=== PATIENT | male | born 1950 | race Caucasian/White ===

== ENCOUNTER 2025-02-08 15:18 | Emergency (ER) | payer OTHER ==
[~2025-02-08] VITALS: Ht 177.8 cm; Wt 99.9 kg
[2025-02-08 16:24] LABS: BASOPHILS 0.5 % (0.2-1.2); EOSINOPHILS 2.0 % (0.8-7.0); LYMPHOCYTES 34.9 % (21.8-53.1); MCH 31.5 PG (25.7-32.2); MCHC 36.9 g/dL (32.3-36.5); MCV 85.5 fL (79.0-92.2); MONOCYTES 8.3 % (5.3-12.2); NEUTROPHILS 54.1 % (34.0-67.9); RBC 4.54 M/uL (4.63-6.08)
[2025-02-08] MEDS ORDERED: SODIUM CHLORIDE 0.9% 1,000 ML IV PRN ×2 (16:30→17:15)
[2025-02-08] MEDS ORDERED: METOPROLOL TAR100 MG PO (16:40)
[2025-02-08] MEDS ORDERED: ONE DAILY WITH1 EACH PO (16:40)
[2025-02-08 16:55] LABS: ALCOHOL, MEDICAL <3 ng/dL (<3); ALT (SGPT) 49 U/L (14-59); AST (SGOT) 29 U/L (15-37); GLOMERULAR FILTRATION RATE,EST 65 mL/min (>60); PROTEIN, TOTAL 6.8 g/dL (6.4-8.2); UREA NITROGEN 26 mg/dL (7-18)
[2025-02-08 17:09] LABS: BLOOD/HGB, URINE NEGATIVE (Negative); KETONE, URINE TRACE (Negative); LEUK ESTERASE, URINE NEGATIVE (negative); NITRITE, URINE NEGATIVE (negative)
[2025-02-08] MEDS ORDERED: Insulin Regular, Human 100 UNIT/ML ML IV ONE (17:15)
[2025-02-08 17:26] LABS: AMPHETAMINES, URINE NEGATIVE (NEGATIVE); BARBITURATES, URINE NEGATIVE (NEGATIVE); BENZODIAZEPINE, URINE NEGATIVE (NEGATIVE); CANNABINOID, URINE NEGATIVE (NEGATIVE); COCAINE, URINE NEGATIVE (NEGATIVE); ECSTASY, URINE NEGATIVE (NEGATIVE); FENTANYL, URINE NEGATIVE (NEGATIVE); METHADONE, URINE NEGATIVE (NEGATIVE); OPIATES, URINE NEGATIVE (NEGATIVE); OXYCODONE, URINE NEGATIVE (NEGATIVE); PHENCYCLIDINE, URINE NEGATIVE (NEGATIVE)
[2025-02-08 19:00] VITALS: BP 142/75
--- NOTE | 2025-02-09 22:41 | EKG ---
[facility] [address] [facility] [place] [address] Signed Sinus rhythm with premature atrial complexes Left axis deviation Low voltage QRS Incomplete right bundle branch block Inferior infarct , age undetermined Abnormal ECG No previous ECGs available Confirmed by Michael Campos MD () on 02/09/2025 10:41:02 PM Electronically Signed By: MICHAEL CAMPOS MD [id number] PATIENT NAME: ELIZABETH DURAN SUNITHA Electrocardiogram DATE OF : 50 PHYSICIAN: MICHAEL CAMPOS MD REPORT #: [id number] REPORT IS CONFIDENTIAL AND NOT TO BE RELEASED WITHOUT AUTHORIZATION
== END 2025-02-08 19:00 | disposition home or self-care (01) ==
LOC: ED 15:18
PROVIDERS: Emergency Medicine
DX: E11.9 Type 2 diabetes mellitus without complications (principal); Z88.0 Allergy status to penicillin; Z79.899 Other long term (current) drug therapy
CPT/HCPCS: 36415; 70450; 71045; 80053; 80307; 81003; 82800; 83036; 85025; 93005; 93010; 96361; 96374; 99284-25; G0480; J1815; J7030